=== PATIENT | female | born 1950 | race Caucasian/White ===

== ENCOUNTER 2017-12-04 11:12 | Outpatient (CLI) | payer BC | END 2017-12-04 11:13 | disposition home or self-care (01) | LOC: BICMAMMO 11:12 | PROVIDERS: ATTEND Physician Assistant | DX: Z12.31 Encounter for screening mammogram for malignant neoplasm of breast (principal); R92.1 Mammographic calcification found on diagnostic imaging of breast; Z80.3 Family history of malignant neoplasm of breast | CPT/HCPCS: 77063; 77067 ==

== ENCOUNTER 2017-12-26 12:06 | Outpatient (CLI) | payer BC ==
[2017-12-26 13:18] LABS: #Basophils 0.1 thou/uL (0.0-0.2); #Eosinphils 0.2 thou/uL (0.0-0.7); #Lymphocytes 1.7 thou/uL (1.20-3.40); #Monocytes 0.6 thou/uL (0.11-0.59); #Neutrophils 2.2 thou/uL (1.40-6.50); %Basophils 1.5 % (0.0-1.0); %Eosinophils 3.4 % (0.0-10.0); %Lymphocytes 35.9 % (21.0-51.0); %Neutrophils 46.3 % (42.0-75.0); Hemoglobin 14.1 g/dL (12.0-16.0); Mean Corpuscular HGB CONC 33.9 g/dL (32.0-36.0); Mean Corpuscular Hemoglobin 31.1 pg (27.0-31.0); Mean Corpuscular Volume 91.9 fL (78.0-98.0); Mean Platelet Volume 7.1 fL (7.4-10.4); Platelet Count 230 thou/uL (130-400); RBC Distribution Width 12.2 % (11.5-14.5); Red Blood Cell (RBC) Count 4.54 mill/uL (4.20-5.40); White Blood Cell (WBC) Count 4.7 thou/uL (4.8-10.8)
--- NOTE | 2017-12-27 16:59 | EKG ---
Test Reason : Blood Pressure : / mmHG Vent. Rate : 068 BPM Atrial Rate : 068 BPM P-R Int : 184 ms QRS Dur : 084 ms QT Int : 412 ms P-R-T Axes : 048 029 043 degrees QTc Int : 438 ms Sinus rhythm Low voltage QRS Borderline ECG Confirmed by SIOBHAN BARTHOLOMEW ([id number]) on 12/27/2017 4:58:55 PM Referred By: EMMETT Confirmed By:SIOBHAN BARTHOLOMEW
== END 2017-12-26 12:07 | disposition home or self-care (01) ==
LOC: LABBT 12:06
PROVIDERS: ATTEND Orthopaedic Surgery
DX: Z01.818 Encounter for other preprocedural examination (principal); S52.691A Other fracture of lower end of right ulna, initial encounter for closed fracture
CPT/HCPCS: 85025; 93005; 93010

== ENCOUNTER 2017-12-27 07:19 | Day surgery (SDC) | payer BC ==
[2017-12-26 12:28] VITALS: BMI 26.2
[2017-12-27] MEDS ORDERED: Midazolam HCl 2 mg/2 ml Vial ONE (08:22)
[2017-12-27] MEDS ORDERED: Fentanyl 100 MCG/2 ML VIAL ONE ×4 (08:22→12:15)
[2017-12-27] MEDS ORDERED: Clindamycin/D5W 600 mg/50 ml Premix Bag ONE (08:48)
--- NOTE | 2017-12-27 11:42 | RAD ---
THREE VIEWS RIGHT WRIST: Indication: Right wrist fracture fixation. Comparison: 12-18-17 FINDINGS: Since the comparison there has been interval open reduction internal fixation of the distal shaft fra cture involving the distal ulna of the right wrist. Fracture alignment is near anatomic. Total fluoro scopy time was 11.32 seconds. Total exposure of 0.25 mGy*cm^2. IMPRESSION: ORIF right distal ulnar fracture. POS: [facility]
[2017-12-27] MEDS ORDERED: Ketorolac Tromethamine 30 MG/ML VIAL ONE (12:05)
[2017-12-27] MEDS ORDERED: Ropivacaine 0.2% 550 ML 550 ML NERVE BLCK SCH (12:56)
[2017-12-27] MEDS ORDERED: Promethazine HCl 25 MG/ML VIAL IM PRN (12:56)
[2017-12-27] MEDS ORDERED: Zolpidem Tartrate 5 MG TAB PO PRN (12:56)
[2017-12-27] MEDS ORDERED: Ondansetron HCl/PF 4 MG/2 ML Vial IVP PRN (12:56)
[2017-12-27] MEDS ORDERED: Acetaminophen 1,000 MG in Premix Bag 1 BAG IVPB SCH (13:00)
[2017-12-27] MEDS ORDERED: Ketorolac Tromethamine 30 MG/ML VIAL IVP SCH (13:00)
--- NOTE | 2017-12-27 13:03 | OP ---
DATE OF PROCEDURE: 12/27/2017 PREOPERATIVE DIAGNOSIS: Radial shaft fracture. POSTOPERATIVE DIAGNOSIS: Radial shaft fracture. PROCEDURE PERFORMED: 1. Open reduction and internal fixation radial shaft fracture. 2. Sugar tong splint. STAFF: David De La Fuente M.D. LABORER GENERAL: Anish Wang PA-C ANESTHESIA: Graham/Breezy. The patient received a LMA axillary single injection. ESTIMATED BLOOD LOSS: 25 mL. TOURNIQUET TIME: 57 minutes at 250 mmHg. IMPLANTS: A [employer]ynthes 10-hole 2.7 plate with 8 screws, 2.7 screws. ANTIBIOTICS: Clindamycin 600 mg. COMPLICATIONS: None. HISTORY OF PRESENT ILLNESS: Ms. Flores is a 67-year-old female who broke her wrist, being hit by a plate in her subcutaneous border on the . The patient was treated conservatively and then had a displacement of her fracture. I discussed with her continued conservative management in a long arm c ast versus continued splint versus clamshell. I discussed the option of open reduction internal fixa tion of her ulna fracture. She understood the risks and benefits of surgery to include pain, scar, b leeding, infection, damage to vital structures, decreased range of motion or strength, continued pain despite surgical intervention. Need for further surgeries, nonunion, malunion, loss of life or limb . The patient understood the risks and benefits and elected to proceed. PROCEDURE IN DETAIL: A timeout was performed designating the right upper extremity as the operative site. Based on site, consents and markings we made a skin incision down, came onto the subcutaneous border of the ulna, split the fascia coming down on the fracture cleaning it posteriorly, cleaning ou t the fracture site of hematoma, placed a clamp across, placed our 10-hole plate. We adjusted versus a little bit more on the ulnar border which I placed on the more dorsal border to place the screws a nd to keep the plate out of the ulnar border. We were able to get our clamp across so we had good ap position of the bone ulnar and radially overall alignment of the bone. I placed 2 screws in the shaf t to control the plate bicortically. We then moved distally, placed a single screw distally. When I clamped it, it cut a little malreduction released and we placed a screw in a lag technique to screw the 2 bones together, then placed a screw. I put 1 more distally, 1 obliquely distally in the third hole to get 6 cortices distally, I placed 4 proximally, I then washed the joint. The patient had 6 co rtices proximally. The patient had some missing bone, but had good on AP x-rays, I felt like I had g ood apposition and overall alignment of the bone. We had a total of 7 screws, washed, then we closed the fascia with #2-0 skin, 2-0 and Nylon with 4-0. We then placed the patient in a sugar tong splin t. We then closed. The patient will be discharged. The patient was placed in a sugar tong splint. She will remain in the splint until I see her back in clinic. Will keep her nonweightbearing for about 8 weeks. The patient will be sent home with Torad ol and tramadol for pain relief.
[2017-12-27] MEDS ORDERED: Promethazine HCl 25 MG/ML VIAL ONE (13:20)
== END 2017-12-27 14:50 | disposition home or self-care (01) ==
LOC: SDC 07:19
PROVIDERS: ATTEND Orthopaedic Surgery
PROC: 0PSK04Z Reposition Right Ulna with Internal Fixation Device, Open Approach (ICD-10-PCS; principal; 2017-12-27)
DX: S52.201A Unspecified fracture of shaft of right ulna, initial encounter for closed fracture (principal); G43.909 Migraine, unspecified, not intractable, without status migrainosus; G89.29 Other chronic pain; Z88.0 Allergy status to penicillin; Z88.5 Allergy status to narcotic agent; Z79.899 Other long term (current) drug therapy
CPT/HCPCS: 76001; 85025; 93005; 93010; 96374; 96375; A4306; C1713; J0131; J1885; J2250; J2550; J2795; J3010; J3490

== ENCOUNTER 2019-11-19 08:56 | Outpatient (CLI) | payer BC ==
--- NOTE | 2019-11-19 09:20 | ULT ---
ULTRASOUND RETROPERITONEUM LIMITED: (ABDOMINAL AORTA) DATE: 11/19/2019 HISTORY: 69-year-old female for abdominal aortic aneurysm screening FINDINGS: The caliber of the entire abdominal aorta is within normal limits. IMPRESSION: No abdominal aortic aneurysm.
--- NOTE | 2019-11-19 09:33 | BD ---
EXAM: Bone densitometry using DEXA HISTORY: 69 yo female. Screening for postmenopausal osteoporosis FINDINGS: Right femoral neck--bone mineral density0.642; T score -1.9 ; Z score -0.2 Total proximal right femur--bone mineral density 0.799; T score -1.2 ; Z score 0.2 Left femoral neck--bone mineral density0.659; T score -1.7 ; Z score -0.1 Total proximal left femur--bone mineral density 0.816; T score -1.0 ; Z score 0.3 The 10 year fracture risk for a major osteoporotic fracture is 11% and for a hip fracture is 1.6%. IMPRESSION: Osteopenia
== END 2019-11-19 08:57 | disposition home or self-care (01) ==
LOC: BICULT 08:56
PROVIDERS: ATTEND Family Medicine
DX: Z00.01 Encounter for general adult medical examination with abnormal findings (principal); Z13.820 Encounter for screening for osteoporosis; M85.852 Other specified disorders of bone density and structure, left thigh; M85.851 Other specified disorders of bone density and structure, right thigh
CPT/HCPCS: 76775; 77080

== ENCOUNTER 2020-02-26 13:20 | Outpatient (CLI) | payer BC ==
--- NOTE | 2020-02-26 14:58 | MMO ---
Bilateral MAMMO Bilat Screen [facility]. CLINICAL HISTORY: Patient is 69 years old and is seen for screening. The patient has the following family history of breast cancer: mother and sister. The patient has no personal history of cancer. VIEWS: The views performed were: bilateral craniocaudal with tomosynthesis and bilateral mediolateral oblique with tomosynthesis. FILMS COMPARED: The present examination has been compared to prior imaging studies performed at [facility] on 06/18/2015, 09/20/2016, 12/04/2017 and 12/24/2018. This study has been interpreted with the assistance of computer-aided detection. MAMMOGRAM FINDINGS: There are scattered fibroglandular densities. There are stable benign appearing calcifications seen in both breasts. There are no suspicious masses, suspicious calcifications, or new areas of architectural distortion. IMPRESSION: THERE IS NO MAMMOGRAPHIC EVIDENCE OF MALIGNANCY. A ROUTINE FOLLOW-UP MAMMOGRAM IN 1 YEAR IS RECOMMENDED. THE RESULTS OF THIS EXAM WERE SENT TO THE PATIENT. ACR BI-RADS Category 2 - Benign finding MAMMOGRAPHY NOTE: 1. A negative mammogram report should not delay a biopsy if a dominant of clinically suspicious mass is present. 2. Approximately 10% to 15% of breast cancers are not detected by mammography. 3. Adenosis and dense breasts may obscure an underlying neoplasm. Reported by: MARYA VERMA MD Electonically Signed: [id number]
== END 2020-02-26 13:21 | disposition home or self-care (01) ==
LOC: BICMAMMO 13:20
PROVIDERS: ATTEND Family Medicine
DX: Z12.31 Encounter for screening mammogram for malignant neoplasm of breast (principal); Z80.3 Family history of malignant neoplasm of breast
CPT/HCPCS: 77063; 77067

== ENCOUNTER 2021-04-07 10:48 | Outpatient (CLI) | payer BC | END 2021-04-07 10:49 | disposition home or self-care (01) | LOC: BICMAMMO 10:48 | PROVIDERS: ATTEND Family Medicine | DX: Z12.31 Encounter for screening mammogram for malignant neoplasm of breast (principal); Z80.3 Family history of malignant neoplasm of breast | CPT/HCPCS: 77063; 77067 ==

== ENCOUNTER 2022-05-23 12:02 | Outpatient (CLI) | payer MEDICARE, BC | END 2022-05-23 12:03 | disposition home or self-care (01) | LOC: BICMAMMO 12:02 | PROVIDERS: ATTEND Family Medicine | DX: Z12.31 Encounter for screening mammogram for malignant neoplasm of breast (principal); Z80.3 Family history of malignant neoplasm of breast | CPT/HCPCS: 77063; 77067 ==

== ENCOUNTER 2023-06-11 10:33 | Outpatient (CLI) | payer MEDICARE, OTHER | END 2023-06-11 10:34 | disposition home or self-care (01) | LOC: BICMAMMO 10:33 | PROVIDERS: ATTEND Internal Medicine | DX: Z12.31 Encounter for screening mammogram for malignant neoplasm of breast (principal); Z80.3 Family history of malignant neoplasm of breast | CPT/HCPCS: 77063; 77067 ==